=== PATIENT | female | born 1975 | race Hispanic/Latino ===

== ENCOUNTER 2017-08-06 17:00 | Emergency (ER) | payer MEDICARE ==
[~2017-08-06 17:00] MED LIST: BIFI4CAP PO; CEFD300C3 PO; DULO60CA63 PO; FOLI1TAB15 PO; LISI10TA7 PO; PANT40TA25 PO; PHEN-776 PO; QUET400T12 PO; TRAZ-187 PO
[2017-08-06] MEDS ORDERED: SODIUM CHLORIDE 0.9% 1000ML 1,000 ML IV ONE (17:18)
[2017-08-06] MEDS ORDERED: ONDANSETRON HCL MDV 20ML 2 MG/ML VIAL ONE (17:18)
[2017-08-06 18:19] LABS: BASOPHILS % (AUTO) 0.6 % (0.0-5.0); EOSINOPHILS % (AUTO) 1.3 % (0.0-8.0); HEMATOCRIT 30.6 % (36-48); LYMPHOCYTES % (AUTO) 24.4 % (21.0-51.0); MEAN CORPUSCULAR HEMOGLOBIN 30.5 pg (27.0-33.0); MEAN CORPUSCULAR VOLUME 89.9 fL (79-99); NEUTROPHILS % (AUTO) 68.7 % (40.0-77.0); PLATELET COUNT (AUTO) 267 K/uL (130-400); RED CELL DISTRIBUTION WIDTH 13.9 % (11.0-15.5); WHITE BLOOD COUNT (AUTO) 6.3 K/uL (4.8-10.8)
[2017-08-06] MEDS ORDERED: ONDANSETRON ODT 4 MG TAB ONE (18:19)
[2017-08-06 18:31] LABS: CARBON DIOXIDE 29 mmol/L (21-32); CHLORIDE 99 mmol/L (101-111); CREATININE 1.6 mg/dL (0.5-1.5); GLOMERULAR FILTR. RATE CALC 38 mL/min (>60); GLUCOSE,RANDOM 369 mg/dL (70-105); POTASSIUM 3.9 mmol/L (3.5-5.1); SODIUM SERUM 136 mmol/L (136-145); UREA NITROGEN, BLOOD 27 mg/dL (7-18)
[2017-08-06 18:37] LABS: ALANINE AMINOTRANSFERASE 24 U/L (12-78); ALBUMIN 3.2 g/dL (3.5-5.0); AMYLASE 19 U/L (25-115); ASPARTATE AMINOTRANSFERASE 31 U/L (10-37); BILIRUBIN,TOTAL 0.3 mg/dL (0.2-1.0); LIPASE 75 U/L (114-286); TOTAL PROTEIN, SERUM 7.6 g/dL (6.0-8.3)
[2017-08-06 18:39] LABS: ACETONE,BLOOD NEGATIVE (NEGATIVE)
[2017-08-06 18:59] LABS: CREATINE KINASE MB 1.7 ng/mL (0.5-3.6)
[2017-08-06] MEDS ORDERED: HYOSCYAMINE SULFATE 0.125 MG TAB.SUBL SL ONE (19:35)
== END 2017-08-06 19:56 | disposition home or self-care (01) ==
LOC: EDH 17:00
DX: E11.65 Type 2 diabetes mellitus with hyperglycemia (principal); N28.9 Disorder of kidney and ureter, unspecified; F14.10 Cocaine abuse, uncomplicated; Z88.0 Allergy status to penicillin; Z72.0 Tobacco use; Z79.4 Long term (current) use of insulin
CPT/HCPCS: 36415; 80053; 82009; 82150; 82553; 82948; 83690; 84484; 85025; 93005; 96361; 96374; 99285; J7030